=== PATIENT | male | born 1955 | race Caucasian/White ===

== ENCOUNTER → 2016-06-16 | Outpatient (CLI) | payer BC ==
[2014-01-02 19:53] VITALS: BP 155/78
[~2016-06-16] MED LIST: ASCO500T2 PO; CALC1TAB PO; CHOL100013 PO; CONTRAST GIVEN MC PRN; CYAN10005 PO; ERGO500012 PO; GLIM2TAB2 PO; IOHEXOL 240 MG/ML 50ML VIAL. PO ONE; IOHEXOL 300 MG/ML 75 ML VIAL IV ONE; METH-39 PO; OMEG1CAP2 PO; POTA20TA12 PO; SITA100T PO; TEST75GE TD
--- NOTE | 2016-06-16 11:32 | RAD ---
Indication staging rectal cancer. Axial images through the chest abdomen and pelvis were obtained. Both oral and IV contrast were administered. Approximately 75 cc of Omnipaque 300 was administered. Note is made of a previous examination 05/14/2015. CT chest: Findings. There are scattered several collateral venous structures seen in the left upper back. There is some narrowing seen associated with the medial aspect of the left subclavian vein. While the findings may be related to positioning of the arms a venous obstructive component at the left lung apex is not entirely excluded. 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 There are nodules in the right lobe of the thyroid similar to the previous exam. If clinically warranted this could be further evaluated with ultrasound. An acute finding in the chest is not seen. There is no dominant soft tissue mass in either lung. There is no evidence of metastatic disease to the chest. CT abdomen and pelvis: Findings. The liver and spleen appear unremarkable. Clips are noted in the gallbladder fossa. The pancreas adrenal glands and kidneys appear unremarkable. An acute finding in the abdomen is not seen. There is no evidence of metastatic disease in the abdomen. In the pelvis occasional diverticula are seen associated with the large bowel. Active inflammation is not seen. Acute finding in the pelvis or evidence of metastatic disease is not seen. IMPRESSION: No acute finding seen in the chest, abdomen or pelvis. No evidence of metastatic disease. Right thyroid nodule Possible venous obstruction at the left thoracic inlet. PQRS Compliance Statement: One or more of the following individualized dose reduction techniques were utilized for this examination: 1. Automated exposure control 2. Adjustment of the mA and/or kV according to patient size 3. Use of iterative reconstruction technique
== END | disposition home or self-care (01) ==
LOC: CT 08:34
PROVIDERS: ATTEND Internal Medicine Hematology & Oncology
DX: C20 Malignant neoplasm of rectum (principal)
CPT/HCPCS: 71260; 74177; Q9966; Q9967

== ENCOUNTER → 2017-02-28 | Outpatient (CLI) | payer BC ==
[2017-02-28] MEDS: ZOLPIDEM 5 MG TABLET. PO (21:15)
[2017-03-01] MEDS: OXYMETAZOLINE 0.05% NASAL SPRAY 30ML BOTTLE. NS (01:15)
== END | disposition home or self-care (01) ==
LOC: RT 18:26
DX: G47.33 Obstructive sleep apnea (adult) (pediatric) (principal)
CPT/HCPCS: 95810

== ENCOUNTER → 2017-06-23 | Outpatient (CLI) | payer BC ==
[2017-06-23] MEDS: IOHEXOL 300 MG/ML 100ML VIAL. IV (11:38)
[2017-06-23] MEDS: IOHEXOL 240 MG/ML 50ML VIAL. PO (11:38)
== END | disposition home or self-care (01) ==
LOC: CT 10:52
DX: C20 Malignant neoplasm of rectum (principal); I70.0 Atherosclerosis of aorta; K40.90 Unilateral inguinal hernia, without obstruction or gangrene, not specified as recurrent
CPT/HCPCS: 71260; 74177; Q9966; Q9967